=== PATIENT | female | born 1975 | race Caucasian/White ===

== ENCOUNTER 2018-07-31 09:13 | Day surgery (SDC) | payer OTHER, MEDICAID ==
[2018-07-31 10:54] LABS: ADD MAN DIFF? NO
[2018-07-31 10:59] LABS: WHITE BLOOD COUNT 6.5 10^3/ul (4.8-10.8)
[2018-07-31 10:59] LABS: BASOPHILS % 0.6 % (0.0-2.0); EOSINOPHILS # 0.1 10^3/ul (0.0-0.5); EOSINOPHILS % 2.1 % (0.0-7.0); HEMATOCRIT 40.4 % (37.0-47.0); HEMOGLOBIN 13.7 g/dl (12.0-16.0); LYMPHOCYTES # 2.4 10^3/ul (0.8-2.9); MEAN CORPUSCULAR HEMOGLOBIN 31.3 pg (29.0-33.0); MEAN CORPUSCULAR HGB CONC 33.9 g/dl (32.0-37.0); MEAN CORPUSCULAR VOLUME 92.2 fl (82.0-101.0); MEAN PLATELET VOLUME 9.7 fl (7.4-10.4); MONOCYTE # 0.7 10^3/ul (0.3-0.9); MONOCYTES % 10.9 % (0.0-11.0); NEUTROPHIL # 3.2 10^3/ul (1.6-7.5); NEUTROPHILS % 49.2 % (39.0-77.0); PLATELET COUNT 279 10^3/UL (140-415); RED BLOOD COUNT 4.38 10^6/ul (4.20-5.40); RED CELL DISTRIBUTION WIDTH 11.9 % (11.5-14.5)
[2018-07-31 11:22] LABS: ANION GAP 13 (5-13); BLOOD UREA NITROGEN 10 mg/dl (7-20); CALCIUM 9.3 mg/dl (8.4-10.2); CARBON DIOXIDE 29 mmol/L (21-31); CHLORIDE 105 mmol/L (97-110); CREATININE 0.57 mg/dl (0.44-1.00); Estimated GFR > 60 mL/min (>60); GLUCOSE 93 mg/dl (70-220); POTASSIUM 4.6 mmol/L (3.5-5.1); SODIUM 147 mmol/L (135-144)
[2018-07-31] MEDS ORDERED: PROPOFOL 40 ML (13:19)
[2018-07-31] MEDS ORDERED: CEFAZOLIN 1 GM INJ (13:19)
[2018-07-31] MEDS ORDERED: LIDOCAINE 2% (SDV) 5 ML INJ (13:19)
[2018-07-31] MEDS ORDERED: ONDANSETRON 4 MG INJ (13:20)
[2018-07-31] MEDS ORDERED: MIDAZOLAM 1 MG/ML 2 ML INJ (13:20)
[2018-07-31] MEDS ORDERED: FAMOTIDINE 20 MG INJ (13:20)
[2018-07-31] MEDS ORDERED: DEXAMETHASONE 4 MG/ML 1 ML INJ (13:20)
[2018-07-31] MEDS ORDERED: FENTAnyl 50 MCG/ML VIAL (13:20)
[2018-07-31] MEDS ORDERED: ONDANSETRON 4 MG INJ IV (13:30)
[2018-07-31] MEDS ORDERED: LABETALOL HCL 20MG INJ IV (13:30)
[2018-07-31] MEDS ORDERED: morphine (1 MG/ML) 10ML SYRINGE IV ×2 (13:30)
[2018-07-31] MEDS ORDERED: ALBUTEROL 0.083% (NEB) 2.5 MG/3 ML AMP HHN (13:30)
[2018-07-31] MEDS ORDERED: FENTAnyl 50 MCG/ML VIAL IV ×2 (13:30)
[2018-07-31] MEDS ORDERED: LIDOCAINE 1%/EPI 30 ML INJ INJ (13:30)
[2018-07-31] MEDS ORDERED: HYDROmorphONE 1 MG/5 ML IV SYRINGE IV ×2 (13:30)
[2018-07-31] MEDS ORDERED: DIPHENHYDRAMINE 50 MG INJ IV (13:30)
[2018-07-31] MEDS ORDERED: FERRIC SUBSULFATE 8 GM VIAL TOP (13:30)
[2018-07-31] MEDS ORDERED: OXYCODONE/ACETAMINOPHEN (5/325) TAB PO ×2 (13:30)
[2018-07-31] MEDS ORDERED: MEPERIDINE 25 MG INJ IV (13:30)
[2018-07-31] MEDS ORDERED: KETOROLAC 30 MG INJ (13:44)
[2018-07-31] MEDS: LIDOCAINE 1%/EPI (1:100,000) (MDV) 20 ML INJ (13:49)
== END 2018-07-31 16:00 | disposition home or self-care (01) ==
LOC: SDS 09:13
DX: D06.1 Carcinoma in situ of exocervix (principal)
CPT/HCPCS: 57460; 80048; 85025; 86850; 86900; 86901; 88305; 93005